=== PATIENT | female | born 1995 | race Asian ===

== ENCOUNTER 2024-11-27 08:33 | Outpatient (REF) | payer OTHER, SELFPAY ==
--- NOTE | ~2024-11-27 | XR_ITS ---
EXAMINATION: XR CHEST CLINICAL INFORMATION: R06.09 - Other forms of dyspnea COMPARISON: None available. TECHNIQUE: 2 views of the chest were obtained. FINDINGS: No consolidation, pleural effusion or pneumothorax. Cardiomediastinal silhouette size is normal. Osseous structures are intact. XR/XR chest 2V IMPRESSION: Normal exam. Electronically signed by: Isrrael Correia MD 11/27/2024 03:06 PM EDT
[2024-11-27 10:18] LABS: MANUAL DIFF FLAG NO
[2024-11-27 10:33] LABS: Appearance Urine Clear; Glucose Urine UA Negative (Negative); PH 6.0 (5.0-9.0); Specific Gravity - Urine 1.010 (1.005-1.025)
[2024-11-27 10:35] LABS: Hematocrit 44.8 % (37.0-47.0); Hemoglobin 14.5 g/dl (12.0-16.0); Imm Gran Abs Auto 0.02 X10*3/uL (0.00-0.03); Imm Gran Pct Auto 0.3 % (0.0-0.4); Lymphocytes Absolute Auto 2.7 X10*3/uL (1.2-4.9); Mean Corpuscular HGB Conc 32.4 g/dl (31.0-35.0); Mean Corpuscular Hemoglobin 26.2 pg (27.0-33.0); Mean Corpuscular Volume 81.0 fL (80.0-98.0); NRBC Abs Auto 0.000 X10*3/uL (0.0-0.012); NRBC Pct Auto 0.0 /100WBC (0.0-0.2); Platelet Count 244 X10*3/uL (160-400); Red Blood Count 5.53 X10*6/uL (4.20-5.50); White Blood Count 7.5 X10*3/uL (4.8-10.8)
[2024-11-27 11:00] LABS: B Type Natriuretic Peptide 51 pg/mL (<100)
[2024-11-27 11:06] LABS: Alanine Aminotransferase 19 U/L (0-31); Albumin Level 5.0 g/dL (3.5-5.0); Alkaline Phosphatase 52 U/L (39-117); Anion Gap 11 (12-20); Aspartate Amino Transferase 24 U/L (5-31); Blood Urea Nitrogen 7 mg/dL (9-16); Calcium 9.8 mg/dL (8.4-10.2); Carbon Dioxide 26 mmol/L (22-29); Chloride 107 mmol/L (96-108); Cholesterol 193 mg/dL (<200); Estimated Glomerular Filt Rate > 60; HDL Cholesterol 59 mg/dL (>40); Potassium 5.0 mmol/L (3.3-5.1); Sodium 139 mmol/L (135-145); Total Protein 8.0 g/dL (6.5-8.0); Triglycerides 61 mg/dL (<150)
[2024-11-27 11:14] LABS: HIV Num 1 0.05 S/CO (0.00-0.99)
[2024-11-28 19:03] LABS: Lyme Abs Screen <0.90 index
== END 2024-11-27 08:34 | disposition home or self-care (01) ==
LOC: HO.LAB 08:33
DX: Z76.89 Persons encountering health services in other specified circumstances (principal); I49.9 Cardiac arrhythmia, unspecified; R06.01 Orthopnea; R06.09 Other forms of dyspnea; N92.6 Irregular menstruation, unspecified; R59.9 Enlarged lymph nodes, unspecified; Z13.31 Encounter for screening for depression; Z13.39 Encounter for screening examination for other mental health and behavioral disorders
CPT/HCPCS: 36415; 71046; 80053; 80061; 81003; 82306; 83880; 84443; 84702; 85025; 85652; 86141; 86617; 86618; 87389; 96127; 99202

== ENCOUNTER 2024-11-27 08:33 | Outpatient (AMB) | payer OTHER, SELFPAY ==
[2024-11-27 08:35] VITALS: BP 110/62; PULSE 84; TEMP 36.2; O2SAT 99; BMI 19.3
--- NOTE | 2024-11-27 08:35 | A.OFFPC_ITS ---
Vital Signs 11/27/24 08:35 Height 5 ft 1 in Weight 102 lb 2 oz BMI 19.3 BP 110/62 Blood Pressure Location Lt brachial Position Sitting Pulse 84 Pulse Source Pulse Oximeter Temp 97.1 F Temp Source Temporal Artery Scan Pulse Oximetry (%) 99 Oxygen Delivery Method Room Air Intake Visit Reasons: establish care Plc Engineer Required: Yes Plc Engineer Language: Irish Plc Engineer Name: [id number] Accompanied by: Spouse Allergies No Known Allergies Allergy (Verified 11/27/24 08:45) Medication List - Last Reconciled 11/27/24 by PATEL Rodriguez No Known Home Meds Tobacco use date assessed: 11/27/24 Dental Screening Dental Screen Date: 11/27/24 Did you have a dental visit in the last 12 months?: No Did you have a dental problem in the last 6 months where you did not have access to dental care?: No Was dental information given to patient?: Patient declined HPI establish care HPI Details Patient is a 29-year-old Irish female presenting to [facility]. Accompanied by . Previous PCP:none in the [place] Last visit: n/a Last PE:about year ago Specialist: no OBGYN: will need a referral Past medical history: Cardiac arrhythmia Medications:no Family HX: none Problem: She reports shortness of breath when she lying down for too long, or with exertion. She also gets an headache when lying down at times. Denies shortness or breath with sitting up or standing. Denies heart palpitations. Denies chest pain or dizziness. Reports constipation closely menstruation. Abdomen cessation takes her 2-3 days before having a bowel movement Patient reports only having a period every 2 months. Reports that it usually last for 3 days lmp: October 20, 2024. Patient denies using controls before. 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 1. Little interest or pleasure in doing things: not at all 2. Feeling down, depressed, or hopeless: not at all 3. Trouble falling or staying asleep, or sleeping too much: not at all 4. Feeling tired or having little energy: not at all 5. Poor appetite or overeating: not at all 6. Feeling bad about yourself - or that you are a failure or have let yourself or your family down: not at all 7. Trouble concentrating on things, such as reading the newspaper or watching te levision: not at all 8. Moving or speaking so slowly that other people could have noticed. Or the opposite - being so fidgety or restless that you have been moving around a lot more than usual: not at all 9. Thoughts that you would be better off or of hurting yourself in some way: not at all Total score: 0 Depression Screening Interpretation: Negative Depression Screening Done: Yes 26673 - PHQ-9 Billing: Yes Source: Developed by Drs. Fernie Aldana, Anika Garland, Diego Benjamin and colleagues, with an educational geovanny from [employer] Thrive Questionnaire Date Thrive assessed: 11/27/24 I am a: Patient What is your living situation today?: I have a steady place to live Within the past 12 months, did the food you bought not last and you didn't have the money to get more?: Never true Within the past 12 months, did you worry whether your food would run out before you got money to buy more?: Never true Do you have trouble paying for medicines?: No Do you have trouble getting transportation to medical appointments?: No Do you have trouble paying your heating and electricity bill?: No Do you have trouble taking care of your child, family member or friend?: No Do you have trouble with day-to-day activities such as bathing, preparing meals, shopping, managing finances, etc.?: No Are you currently unemployed and looking for a job?: No Are you interested in more education?: No THRIVE Score: 0 AUDIT C Alcohol Use Questionnaire (AUDIT-C) 1. How often do you have a drink containing alcohol?: Never 3. How often do you have six or more drinks on one occasion?: Never Total Score: 0 MERNA-7 AMB Questionnaire MERNA-7 Date MERNA - 7 assessed: 11/27/24 Feeling nervous, anxious, or on edge: 0 = Not at all Not being able to stop or control worryin = Not at all Worrying too much about different things: 0 = Not at all Trouble relaxin = Not at all Being so restless that it is hard to sit still: 0 = Not at all Becoming easily annoyed or irritable: 0 = Not at all Feeling afraid as if something awful might happen: 0 = Not at all Total MERNA-7 score (0-4 normal; 5-9 mild; 10-14 moderate; 15-21 severe): 0 Source: Developed by Drs. Fernie Aldana, Anika Garland, Diego Benjamin and colleagues, with an educational geovanny from [employer] MERNA-7 Assessment Billing MERNA-7 Assessment Tool: MERNA-7 Assessment 63446 Review of Systems Const Reports headache(s) (Intermittent when lying down) Eyes Denies loss of vision ENT Denies vertigo, Denies dizziness, Reports headache(s) (Intermittent when lying down) and Denies sore throat Card Denies chest pain, Denies leg edema, Denies lightheadedness, Reports dyspnea on exertion and Reports orthopnea Resp Denies cough, Denies hemoptysis, Reports dyspnea on exertion and Denies wheezing GI Denies abdominal pain, Denies melena, Reports constipation (close to her periods), Denies diarrhea and Denies vomiting Denies dysuria, Denies urinary frequency and Denies urinary urgency Musc Denies arthralgias, Denies joint swelling, Denies numbness and Denies tingling Skin/Breast Reports other (Right posterior cervical lump) Neuro Denies Abnormal speech present, Denies behavioral changes, Denies vertigo, Denies dizziness, Reports headache(s) (Intermittent when lying down), Denies loss of vision, Denies memory loss, Denies numbness and Denies tingling Psych Denies anxiety, Denies behavioral changes, Denies depression, Denies memory loss and Denies panic attacks Todd/Lymph Denies easy bleeding and Denies easy bruising Aller/Immun Denies wheezing Physical exam (Primary Care) Vital Signs: Last Vital Signs Temp 97.1 F 11/27/24 08:35 Pulse 84 11/27/24 08:35 BP 110/62 11/27/24 08:35 Pulse Ox 99 11/27/24 08:35 Oxygen Delivery Method Room Air 11/27/24 08:35 BMI result Body Mass Index 19.3 Tobacco/Smoking Status: Tobacco use Status Patient Tobacco Use Status Never used Tobacco 11/27/24 08:41 Depression Screening Interpretation: Negative Const General: healthy appearing, no acute distress, alert and awake Nutritional Appearance: well nourished Orientation/consciousness: oriented to person, oriented to place and oriented to time HENMT Ears: TM's normal bilaterally General nose exam: Normal nasal mucous membranes and turbinates present Eyes Conjunctivae: conjunctivae normal Sclerae: sclerae normal Pupils: Equal, round and reactive pupils present Neck Neck: Yes lymphadenopathy (Right posterior as cervical lymph node) and Yes no JVD Thyroid: Thyroid normal Carotids: no bruits Resp Effort & Inspection: normal respiratory effort and not tachypneic Auscultation: no crackles, no rales, no rhonchi and no wheezes Cardio Rate: regular rate Rhythm: regular rhythm Heart sounds: no murmurs and normal S1 and S2 GI Palpation (GI): Soft to palpation, nontender, no hepatomegaly and no splenomegaly Auscultation: normal bowel sounds Skin General skin exam: dry skin Lesions: lesion noted (Right posterior cervical lymph node) Neuro General: oriented to person, oriented to place and oriented to time Cranial nerves: Yes Equal, round and reactive pupils present Speech: No Abnormal speech present Gait exam (Neuro): Normal gait present Motor exam (neuro): no tremor noted Extrem Right upper extremity: full ROM Left upper extremity: full ROM Right lower extremity: full ROM; no edema Left lower extremity: full ROM; no edema Psych Mental Status: mental status grossly normal Speech and movement: Normal speech and movement present Affect: normal affect Attitude: cooperative Thought process: Normal thought process present Coding Level of Care Code New Pt Level 4 (19237) Diagnoses Cardiac arrhythmia, unspecified cardiac arrhythmia type I49.9 Arrhythmia type: unspecified cardiac arrhythmia Orthopnea R06.01 Exertional dyspnea R06.09 Irregular periods N92.6 Lymph node enlargement R59.9 Additional Codes MERNA-7 Assessment Billing - MERNA-7 Assessment Tool: MERNA-7 Assessment 55054 ([id number]) PHQ-9 - 77140 - PHQ-9 Billing: Yes ([id number]) Time Spent (min) 45 Assessment & Plan Assessment & Plan (1) Cardiac arrhythmia: Code(s): I49.9 - Cardiac arrhythmia, unspecified Category: Medical Qualifiers: Arrhythmia type: unspecified cardiac arrhythmia Qualified Code(s): I49.9 - Cardiac arrhythmia, unspecified Plan: Patient reports that she was told that she had cardiac arrhythmia in [place]. Heart rhythm sinus with PVCs on 1 strip on the 2nd showed the patient has normal sinus with small Q-waves in leads V1 into and V2 nonspecific ST-T changes. Cardiology referral placed (2) Orthopnea: Code(s): R06.01 - Orthopnea Category: Medical Plan: Reports shortness of breath when lying down. Breath sounds clear, no swelling in her legs. BNP and echocardiogram ordered Ordered labs, we will advise (3) Exertional dyspnea: Code(s): R06.09 - Other forms of dyspnea Category: Medical Plan: Intermittent dyspnea with exertion. No edema or abnormal breath sounds. BNP and echo ordered. CXR was ordered as well. (4) Irregular periods: Code(s): N92.6 - Irregular menstruation, unspecified Category: Medical Plan: Patient is having periods every 2 months. HCG ordered with regular labs. We will refer to OBGYN (5) Lymph node enlargement: Code(s): R59.9 - Enlarged lymph nodes, unspecified Category: Medical Plan: Labs ordered, we will advise Orders: Orders Complete Blood Count Auto Diff Today N92.6 - Irregular menstruation, unspecified, R06.01 - Orthopnea, R06.09 - Other forms of dyspnea, R59.9 - Enlarged lymph nodes, unspecified, Z76.89 - Persons encountering health services in other specified circumstances TSH reflex Free T4 Today N92.6 - Irregular menstruation, unspecified, R06.01 - Orthopnea, R06.09 - Other forms of dyspnea, R59.9 - Enlarged lymph nodes, unspecified, Z76.89 - Persons encountering health services in other specified circumstances UA CC w/rflx Micro + Cult Today N92.6 - Irregular menstruation, unspecified, R06.01 - Orthopnea, R06.09 - Other forms of dyspnea, R59.9 - Enlarged lymph nodes, unspecified, Z76.89 - Persons encountering health services in other specified circumstances B Type Natriuretic Peptide Today N92.6 - Irregular menstruation, unspecified, R06.01 - Orthopnea, R06.09 - Other forms of dyspnea, R59.9 - Enlarged lymph nodes, unspecified, Z76.89 - Persons encountering health services in other specified circumstances Vitamin D 25-OH Total Today N92.6 - Irregular menstruation, unspecified, R06.01 - Orthopnea, R06.09 - Other forms of dyspnea, R59.9 - Enlarged lymph nodes, unspecified, Z76.89 - Persons encountering health services in other specified circumstances CRP High Sensitivity Today N92.6 - Irregular menstruation, unspecified, R06.01 - Orthopnea, R06.09 - Other forms of dyspnea, R59.9 - Enlarged lymph nodes, unspecified, Z76.89 - Persons encountering health services in other specified circumstances Erythrocyte Sedimentation Rate Today N92.6 - Irregular menstruation, unspecified, R06.01 - Orthopnea, R06.09 - Other forms of dyspnea, R59.9 - Enlarged lymph nodes, unspecified, Z76.89 - Persons encountering health services in other specified circumstances HIV Ab/Ag Today R59.9 - Enlarged lymph nodes, unspecified Lyme IgG/IgM w/reflex to WB Today R59.9 - Enlarged lymph nodes, unspecified CA echo transthoracic complete Today R06.01 - Orthopnea, R06.09 - Other forms of dyspnea Comprehensive Ideal. Panel Fast Today N92.6 - Irregular menstruation, unspecified, R06.01 - Orthopnea, R06.09 - Other forms of dyspnea, R59.9 - Enlarged lymph nodes, unspecified, Z76.89 - Persons encountering health services in other specified circumstances Lipid Panel Today N92.6 - Irregular menstruation, unspecified, R06.01 - Orthopnea, R06.09 - Other forms of dyspnea, R59.9 - Enlarged lymph nodes, unspecified, Z76.89 - Persons encountering health services in other specified circumstances XR chest 2V Today R06.01 - Orthopnea, R06.09 - Other forms of dyspnea HCG Quantitative Today N92.6 - Irregular menstruation, unspecified Referrals Cardiology Referral I49.9 - Cardiac arrhythmia, unspecified, R06.01 - Orthopnea, R06.09 - Other forms of dyspnea INCLUSION PARAEDUCATOR Referral N92.6 - Irregular menstruation, unspecified
== END 2024-11-27 09:36 | disposition home or self-care (01) ==
DX: I49.9 Cardiac arrhythmia, unspecified (principal); R06.01 Orthopnea; R06.09 Other forms of dyspnea; N92.6 Irregular menstruation, unspecified; R59.9 Enlarged lymph nodes, unspecified

== ENCOUNTER → 2024-11-27 10:20 | Outpatient (BNV) | payer OTHER, SELFPAY | PROVIDERS: Visit Provider Radiology Diagnostic Radiology | DX: R06.09 Other forms of dyspnea (principal) | CPT/HCPCS: 71046 ==

== ENCOUNTER → 2025-01-02 14:53 | Outpatient (REF) | payer OTHER, SELFPAY ==
--- NOTE | 2025-01-02 14:58 | CA_ITS ---
Transthoracic Echocardiogram Patient (Last, First, Middle): Courtney Arroyo, Gender: Female Date of : 1995 Age: 29 Procedure Date: 01/02/2025 Procedure Type: Transthoracic Echocardiogram Location: OP Height: 154.94 cm Weight: 46.27 kg BSA: 1.42 m2 Heart Rate: bpm BP: 110 / 62 mmHg Pin Puller: TO/DIYA Referring MD: Salty LORENZOP-C Symptoms: R06.01 - Orthopnea Study Quality: Adequate ECG Rhythm: Sinus Conclusions: - The left ventricular systolic function is normal. The calculated ejection fraction is 60% by biplane method. - No obvious valvular pathology seen on this study. Findings Left Ventricle Normal left ventricular cavity size. There is normal left ventricular wall thickness. The left ventricular systolic function is normal. The calculated ejection fraction is 60% by biplane method. There is no evidence of regional wall motion abnormalities. Diastolic function is normal for age. Right Ventricle Normal right ventricular cavity size and systolic function. Atria Both atria are normal in size. Aortic Valve There is a normal trileaflet aortic valve. There is no aortic valve stenosis. There is no aortic valve regurgitation. Mitral Valve The mitral valve appears normal. There is no mitral valve regurgitation. There is no mitral valve stenosis. Pulmonic Valve The pulmonic valve is likely normal. Tricuspid Valve There is mild tricuspid valve regurgitation. There is no evidence of pulmonary hypertension. Great Vessels The asc aorta is normal in size. Venous The inferior vena cava is normal in size and collapses greater than 50% with inspiration. Pericardium/Pleural There is no evidence of pericardial effusion. Prior Study Comparison No prior study available for comparison. Recommendations, Care & Conclusions No obvious valvular pathology seen on this study. Measurements 2D Linear Measurements IVSd: 0.57 0.6-0.9/0.6-1.0 cm LVIDd: 4.38 3.9-5.3/4.2-5.9 cm LVIDd Index: 3.08 2.4-3.2/2.2-3.1 cm/m2 LVIDs: 3.02 2.0-3.6 cm LVPWd: 0.56 0.7-1.1 cm LA Diam: 2.70 2.7-3.8/3.0-4.0 cm LAIDs Index: 1.90 1.5-2.3 cm/m2 LV Mass: 86.40 67-162/88-224 g LV Mass Index: 60.84 43-95/49-115 g/m2 LVOT Diam: 2.00 3.0+(-)1.3 cm 2D Systolic Function EF 4C: 55.60 >55% EF 2C: 63.50 >55% EF BiP: 59.90 >55% Mitral Valve MV Pk E: 0.95 MV PK A: 0.51 MV Decel Time: 207.00 E/A: 1.90 E'Lateral: 13.10 E'Medial: 11.70 E/E' Med: 8.10 E/E' Lat: 7.30 PHT: 61.00 MVA PHT: 3.61 Decel Sterling: 4.61 Aortic Valve AoV Pk Andrea: 1.26 AoV Mn Andrea: 0.91 AoV VTI: 0.30 AoV Pk Grad: 6.00 Aov Mn Grad: 4.00 SAMMY Cont.VTI: 2.39 LVOT LVOT Pk Andrea: 1.03 LVOT Mn Andrea: 0.69 LVOT VTI: 0.23 LVOT Pk Grad: 4.00 LVOT Mn Grad: 2.00 LVOT Diam: 2.00 LVOT Area: 3.14 Diastolic Function MV Pk E: 0.95 MV Pk A: 0.51 E/A: 1.90 E'Medial: 11.70 E/E' Med: 8.10 E' Laterial: 13.10 E/E' Lat: 7.30 Right Ventricle TAPSE (mm): 24.40 TVS' Andrea: 11.20 Tricuspid Valve TR Pk Andrea: 2.14 TR Pk Grad: 18.00 RA Press: 3.00 RVSP: 21.00 Great Vessels Aorta Sinus of Valsalva: 2.40 2.0-3.5 cm Ao Asc: 2.50 2.1-3.4 cm Pulmonary Valve PV Pk Andrea: 0.72 Peak PV Grad: 2.00 Updated in Other Vendor System with Status of Final Taqueria Burk MD electronically signed on 01/04/2025 9:38:04 AM with status of Final
== END ==
LOC: HO.CARD 14:53
DX: R06.01 Orthopnea (principal); R06.09 Other forms of dyspnea
CPT/HCPCS: 93306

== ENCOUNTER → 2025-01-02 14:58 | Outpatient (BNV) | payer OTHER, SELFPAY | PROVIDERS: Visit Provider Internal Medicine | DX: I36.1 Nonrheumatic tricuspid (valve) insufficiency (principal); R06.01 Orthopnea | CPT/HCPCS: 93306 ==

== ENCOUNTER 2025-01-15 08:36 | Outpatient (AMB) | payer OTHER, SELFPAY ==
--- NOTE | 2025-01-15 08:42 | MHC.PC.OV ---
Vital Signs 01/15/25 08:43 Height 5 ft 2 in Weight 102 lb 2 oz BMI 18.7 BP 116/70 Blood Pressure Location Lt brachial Position Sitting Pulse 88 Pulse Source Pulse Oximeter Pulse Oximetry (%) 98 Oxygen Delivery Method Room Air Intake Visit Reasons: 7 weeks Engine House Helper Required: Yes Engine House Helper Language: Laurel Engine House Helper Name: [id number]/Dina Accompanied by: Family/Other Allergies No Known Allergies Allergy (Verified 01/15/25 08:48) Medication List - Last Reconciled 01/15/25 by PATEL Rodriguez No Known Home Meds Tobacco use date assessed: 01/15/25 Dental Screening Dental Screen Date: 11/27/24 Did you have a dental visit in the last 12 months?: No Did you have a dental problem in the last 6 months where you did not have access to dental care?: No Was dental information given to patient?: No (pt is looking dentist ) HPI 7 weeks HPI Details Dentist:not up to date Eye: not up to date Snellen: Right: Left: Corrected vision: no STI screening: Colonoscopy: Pap Smer: She was referred to the [facility] but has not been contacted as yet OGYN: PHQ-9: Flu: up to date COVID: x2 Tdap: she is not sure when this was done, but it is within 10 years Diet:regular Exercise:Reports that she walks The patient is a 29-year-old female presenting with a physical examination and review of lab results. She reports experiencing shortness of breath primarily when lying down, particularly in the senior java web application developer hours. This symptom does not occur consistently and has not been associated with any specific triggers. The patient's cardiac evaluations, including heart tests and chest X-ray, have returned normal results, ruling out cardiac causes for her symptoms. There is a consideration for respiratory causes, and she plans to monitor her symptoms over the next week to determine frequency and potential triggers. The patient has been diagnosed with vitamin D deficiency, which is common in her geographical area due to limited sunlight exposure. She has been advised to take vitamin D supplements, which may be covered by insurance or purchased over the counter. Her cholesterol levels are slightly elevated, but given her young age, she is not considered at high risk. Dietary modifications have been suggested to manage cholesterol levels. Preventative care measures include a referral to an PROTECTIVE SIGNAL OPERATOR, which has not yet been scheduled. The patient has received two COVID-19 vaccinations and is uncertain about her tetanus vaccination status. 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 1. Little interest or pleasure in doing things: not at all 2. Feeling down, depressed, or hopeless: not at all 3. Trouble falling or staying asleep, or sleeping too much: not at all 4. Feeling tired or having little energy: not at all 5. Poor appetite or overeating: not at all 6. Feeling bad about yourself - or that you are a failure or have let yourself or your family down: not at all 7. Trouble concentrating on things, such as reading the newspaper or watching television: not at all 8. Moving or speaking so slowly that other people could have noticed. Or the opposite - being so fidgety or restless that you have been moving around a lot more than usual: not at all 9. Thoughts that you would be better off or of hurting yourself in some way: not at all Total score: 0 Depression Screening Interpretation: Negative Depression Screening Done: Yes Source: Developed by Drs. Fernie Aldana, Anika Garland, Diego Benjamin and colleagues, with an educational geovanny from [employer]. Thrive Questionnaire Date Thrive assessed: 01/15/25 I am a: Patient What is your living situation today?: I do not have a steady places to live I am temporarily staying with others Within the past 12 months, did the food you bought not last and you didn't have the money to get more?: Never true Within the past 12 months, did you worry whether your food would run out before you got money to buy more?: Never true Do you have trouble paying for medicines?: No Do you have trouble getting transportation to medical appointments?: No Do you have trouble paying your heating and electricity bill?: No Do you have trouble taking care of your child, family member or friend?: No Do you have trouble with day-to-day activities such as bathing, preparing meals, shopping, managing finances, etc.?: No Are you currently unemployed and looking for a job?: No Are you interested in more education?: No Please select the resources that you would like help with: None Currently or been in a relationship where the following occur: No concerns reported THRIVE Score: 1 AUDIT C Alcohol Use Questionnaire (AUDIT-C) 1. How often do you have a drink containing alcohol?: Never Total Score: 0 MERNA-7 AMB Questionnaire MERNA-7 Date MERNA - 7 assessed: 01/15/25 Feeling nervous, anxious, or on edge: 0 = Not at all Not being able to stop or control worryin = Not at all Worrying too much about different things: 0 = Not at all Trouble relaxin = Not at all Being so restless that it is hard to sit still: 0 = Not at all Becoming easily annoyed or irritable: 0 = Not at all Feeling afraid as if something awful might happen: 0 = Not at all Total MERNA-7 score (0-4 normal; 5-9 mild; 10-14 moderate; 15-21 severe): 0 Source: Developed by Drs. Fernie Aldana, Anika Garland, Diego Benjamin and colleagues, with an educational geovanny from [employer]. Review of Systems Const Denies headache(s) Eyes Denies loss of vision ENT Denies vertigo, Denies dizziness, Denies headache(s) and Denies sore throat Card Denies chest pain, Denies leg edema, Denies lightheadedness and Reports orthopnea Resp Denies cough, Denies hemoptysis and Denies wheezing GI Denies abdominal pain, Denies melena, Denies constipation, Denies diarrhea and Denies vomiting Denies urinary frequency, Denies dysuria and Denies urinary urgency Musc Denies arthralgias, Denies joint swelling, Denies numbness and Denies tingling Neuro Denies Abnormal speech present, Denies behavioral changes, Denies vertigo, Denies dizziness, Denies headache(s), Denies loss of vision, Denies memory loss, Denies numbness and Denies tingling Psych Denies anxiety, Denies behavioral changes, Denies depression, Denies memory loss and Denies panic attacks Todd/Lymph Denies easy bleeding and Denies easy bruising Aller/Immun Denies wheezing Physical exam (Primary Care) Vital Signs: Last Vital Signs Pulse 88 01/15/25 08:43 BP 116/70 01/15/25 08:43 Pulse Ox 98 01/15/25 08:43 Oxygen Delivery Method Room Air 01/15/25 08:43 BMI result Body Mass Index 18.7 Tobacco/Smoking Status: Tobacco use Status Tobacco use date assessed 01/15/25 01/15/25 08:47 Patient Tobacco Use Status Never used Tobacco 01/15/25 08:47 e-Cigarette/Vaping Use Never Used 01/15/25 08:47 PHQ-9: PHQ-9 Score PHQ-9: Total score 0 01/15/25 08:55 Depression Screening Interpretation: Negative Thrive Assessment: Date of Thrive Assessment Date Thrive assessed 01/15/25 01/15/25 08:47 Currently or been in a relationship where the following occur: No concerns reported Const General: healthy appearing, no acute distress, alert and awake Nutritional Appearance: well nourished Orientation/consciousness: oriented to person, oriented to place and oriented to time HENMT Ears: TM's normal bilaterally General nose exam: Normal nasal mucous membranes and turbinates present Eyes Conjunctivae: conjunctivae normal Sclerae: sclerae normal Pupils: Equal, round and reactive pupils present Neck Neck: Yes no lymphadenopathy and Yes no JVD Thyroid: Thyroid normal Carotids: no bruits Resp Effort & Inspection: normal respiratory effort and not tachypneic Auscultation: no crackles, no rales, no rhonchi and no wheezes Cardio Rate: regular rate Rhythm: regular rhythm Heart sounds: no murmurs and normal S1 and S2 GI Palpation (GI): Soft to palpation, nontender, no hepatomegaly and no splenomegaly Auscultation: normal bowel sounds Skin General skin exam: no rashes or lesions noted and dry skin Neuro General: oriented to person, oriented to place and oriented to time Cranial nerves: Yes Equal, round and reactive pupils present Speech: No Abnormal speech present Gait exam (Neuro): Normal gait present Motor exam (neuro): no tremor noted Deep tendon reflexes (DTR's): Right triceps reflex intensity grade: 2+, Left triceps reflex intensity grade: 2+, Rt Biceps (C5, C6): 2+, Left biceps reflex intensity grade: 2+, Right brachioradialis reflex intensity grade: 2+, Left brachioradialis reflex intensity grade: 2+, Right patellar reflex intensity grade: 2+ and Left patellar reflex intensity grade: 2+ Extrem Right upper extremity: full ROM Left upper extremity: full ROM Right lower extremity: full ROM; no edema Left lower extremity: full ROM; no edema Psych Mental Status: mental status grossly normal Speech and movement: Normal speech and movement present Affect: normal affect Attitude: cooperative Thought process: Normal thought process present Results Reviewed Results Reviewed: Laboratory Tests 11/27/24 11/27/24 10:15 10:16 WBC 7.5 RBC 5.53 H Hgb 14.5 Hct 44.8 MCV 81.0 MCH 26.2 L MCHC 32.4 RDW 12.9 Plt Count 244 MPV 10.5 Immature Gran % (Auto) 0.3 Sodium 139 Potassium 5.0 Chloride 107 Carbon Dioxide 26 Anion Gap 11 L BUN 7 L Creatinine 0.61 Estimated GFR > 60 Fasting Glucose 91 Calcium 9.8 Total Bilirubin 0.5 AST 24 ALT 19 Alkaline Phosphatase 52 C-React Prot High Sens 0.2 B-Natriuretic Peptide 51 Total Protein 8.0 Albumin 5.0 Triglycerides 61 Cholesterol 193 LDL Cholesterol, Calc 122 H HDL Cholesterol 59 25-OH Vitamin D Total 18.5 L TSH 0.98 Beta HCG, Quant < 2 Urine Color Yellow Urine Appearance Clear Urine pH 6.0 Ur Specific [place] 1.010 Urine Protein Negative Urine Glucose (UA) Negative Urine Ketones Negative Urine Blood Negative Urine Nitrite Negative Ur Leukocyte Esterase Negative Coding Level of Care Code Est Pt Prev Care 18-39y([id number]) Diagnoses Annual physical exam Z00.00 Orthopnea R06.01 Cardiac arrhythmia, unspecified cardiac arrhythmia type I49.9 Arrhythmia type: unspecified cardiac arrhythmia Pure hypercholesterolemia E78.00 Hyperlipidemia type: pure hypercholesterolemia Vitamin D deficiency E55.9 Irregular periods N92.6 Elevated LDL cholesterol level E78.00 Time Spent (min) 37 Assessment & Plan Assessment & Plan (1) Annual physical exam: Code(s): Z00.00 - Encounter for general adult medical examination without abnormal findings Category: Medical (2) Orthopnea: Code(s): R06.01 - Orthopnea Category: Medical (3) Cardiac arrhythmia: Code(s): I49.9 - Cardiac arrhythmia, unspecified Category: Medical Qualifiers: Arrhythmia type: unspecified cardiac arrhythmia Qualified Code(s): I49.9 - Cardiac arrhythmia, unspecified (4) HLD (hyperlipidemia): Code(s): E78.5 - Hyperlipidemia, unspecified Category: Medical Qualifiers: Hyperlipidemia type: pure hypercholesterolemia Qualified Code(s): E78.00 - Pure hypercholesterolemia, unspecified (5) Vitamin D deficiency: Code(s): E55.9 - Vitamin D deficiency, unspecified Category: Medical (6) Irregular periods: Code(s): N92.6 - Irregular menstruation, unspecified Category: Medical (7) Elevated LDL cholesterol level: Code(s): E78.00 - Pure hypercholesterolemia, unspecified Category: Medical Plan The patient will monitor her symptoms of shortness of breath over the next week to assess frequency and potential triggers. A pulmonary function test will be ordered to evaluate respiratory function further. For vitamin D deficiency, the patient is advised to take supplements, which may be covered by insurance or purchased over the counter. Dietary modifications are recommended to manage slightly elevated cholesterol levels. A referral to an PROTECTIVE SIGNAL OPERATOR has been made, and follow-up will be conducted to ensure the appointment is scheduled. The patient has completed COVID-19 vaccinations and will be advised on the necessity of a tetanus booster if needed. Patient was informed and verbally consented to the use of an ambient scribe for clinic note documentation during this visit. Orders: Orders Complete Blood Count Auto Diff 3 Months E55.9 - Vitamin D deficiency, unspecified, E78.5 - Hyperlipidemia, unspecified, I49.9 - Cardiac arrhythmia, unspecified IRON PROFILE 3 Months E55.9 - Vitamin D deficiency, unspecified, E78.5 - Hyperlipidemia, unspecified, I49.9 - Cardiac arrhythmia, unspecified Vitamin D 25-OH Total 3 Months E55.9 - Vitamin D deficiency, unspecified, E78.5 - Hyperlipidemia, unspecified, I49.9 - Cardiac arrhythmia, unspecified PFT pulmonary function test Today R06.01 - Orthopnea
[2025-01-15 08:43] VITALS: BP 116/70; PULSE 88; O2SAT 98; BMI 18.7
== END 2025-01-15 09:24 | disposition home or self-care (01) ==
LOC: HO.HMCH 08:37
DX: Z00.00 Encounter for general adult medical examination without abnormal findings (principal); R06.01 Orthopnea; I49.9 Cardiac arrhythmia, unspecified; E78.00 Pure hypercholesterolemia, unspecified; E55.9 Vitamin D deficiency, unspecified; N92.6 Irregular menstruation, unspecified

== ENCOUNTER → 2025-01-15 08:36 | Outpatient (BNVA) | payer OTHER, SELFPAY | DX: Z00.00 Encounter for general adult medical examination without abnormal findings (principal); E55.9 Vitamin D deficiency, unspecified; R06.01 Orthopnea; I49.9 Cardiac arrhythmia, unspecified; E78.00 Pure hypercholesterolemia, unspecified; N92.6 Irregular menstruation, unspecified | CPT/HCPCS: 99395 ==

== ENCOUNTER 2025-04-08 13:05 | Outpatient (AMB) | payer OTHER, SELFPAY ==
[2025-04-08 13:07] VITALS: BP 120/76; PULSE 68; BMI 19.4
--- NOTE | 2025-04-08 13:07 | MHC.OFFVIS ---
Vital Signs 04/08/25 13:07 Height 5 ft 2 in Weight 105 lb 13.15 oz BMI 19.4 BP 120/76 Blood Pressure Location Lt brachial Position Sitting Pulse 68 Intake Visit Reasons: [facility]/Reyes/Cardiac Arrhythmia Intake Note: New patient dx cardiac arrhythmia c/o palpitations mostly in morning Refrigeration Service Inspector Required: Yes Refrigeration Service Inspector Services: Refrigeration Service Inspector Present Refrigeration Service Inspector Name: scottie Crochet Machine Operator: Crochet Machine Operator Present Accompanied by: Spouse Allergies No Known Allergies Allergy (Verified 01/15/25 08:48) Medication List - Last Reconciled 04/08/25 by Lino Steele MD multivitamin 1 tab PO DAILY HPI Comments Details: Thi was referred here for symptoms of palpitations and shortness of breath. She presents here with her and her daughter and history was obtained with help of resp ther over the telephone as she speaks mostly Lao. Patient says that for year or so prior to her current symptoms she was having symptoms of palpitation associated with shortness of breath. At that time she had been seen by you. However since she was examined by you she has not had any recurrent symptoms of palpitation or shortness of breath. She had an echocardiogram done in December which showed normal structure of the heart. She otherwise is generally active. She denies any significant caffeine use or alcohol use. No exertional chest pain or shortness of breath. No orthopnea, PND. 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 Cognitive needs: No Hearing needs: No Vision needs: No Review of Systems Const Denies chills, Denies daytime sleepiness, Denies fatigue, Denies fever(s), Denies frequent falls, Denies poor appetite, Denies snoring, Denies stops breathing during sleep, Denies weakness, Denies weight gain and Denies weight loss Eyes Denies loss of vision ENT Denies dizziness and Denies hearing loss Card Denies chest pain, Denies claudication, Denies leg edema, Denies lightheadedness, Reports palpitations, Denies dyspnea, Denies dyspnea on exertion and Denies orthopnea Resp Denies cough, Denies excessive phlegm production, Denies dyspnea, Denies dyspnea on exertion, Denies snoring and Denies wheezing GI Denies abdominal pain, Denies hematochezia, Denies change in bowel habits, Denies nausea and Denies vomiting Denies urinary frequency and Denies dysuria Musc Denies arthralgias, Denies muscle weakness and Denies numbness Skin/Breast Denies nail changes and Denies rash Neuro Denies Abnormal speech present, Denies dizziness, Denies frequent falls, Denies loss of vision, Denies memory loss, Denies numbness and Denies weakness Psych Denies depression and Denies memory loss Endo Denies fatigue and Reports palpitations Todd/Lymph Reports easy bruising and Reports other (anemia) Aller/Immun Denies wheezing Physical Exam Vital Signs: Last Vital Signs Pulse 68 04/08/25 13:07 BP 120/76 04/08/25 13:07 BMI result Body Mass Index 19.4 Const General: cooperative, comfortable, no acute distress, alert, awake and Physically active Nutritional Appearance: thin Orientation/consciousness: patient oriented x3 Limitations: no limitations HEENT Head: Yes normocephalic and Yes atraumatic Neck Neck: Yes trachea midline, Yes supple and Yes no JVD Resp Effort & Inspection: normal respiratory effort Auscultation: clear to auscultation bilaterally Cardio Jugular venous distension: no JVD Rate: regular rate Rhythm: regular rhythm Heart sounds: S1 normal heart sound present, S2 normal heart sound present, no click, no gallops, no murmurs and no rubs GI Auscultation: normal bowel sounds Skin General skin exam: no rashes or lesions noted Neuro General: patient oriented x3 and no focal motor deficits Speech: No Abnormal speech present Extrem General: Yes no clubbing, cyanosis or edema Office Procedures EKG Details: EKG shows normal sinus rhythm normal EKGs with no pre-excitation with normal intervals [id number], Complete Assessment & Plan Assessment & Plan (1) Palpitations: Code(s): R00.2 - Palpitations Plan: Patient with prior history of palpitation with no recurrence for last many months with normal structure of the heart and echocardiogram and normal EKGs. She could have several possibilities including possible anxiety possible extra systoles. However given lack of symptoms and overall normal findings on exam as well as echocardiogram no further workup is indicated. Discussed with patient and patient's with the help of resp ther that if she has recurrent symptoms to reach out to us for further workup. Avoidance of stimulants was discussed. Stress mitigation strategies were discussed. Will follow up in the clinic if need be. Thank you for allowing me to partake in her care Coding Level of Care Code New Pt Level 3 ([id number]) Complex EM visit Add On G2211 Diagnoses Palpitations R00.2 CPT Codes EKG - CPT: 72195-[id number], Complete ([id number])
== END 2025-04-08 13:33 | disposition home or self-care (01) ==
LOC: HO.HCS 13:06
PROVIDERS: Visit Provider Internal Medicine Cardiovascular Disease
DX: R00.2 Palpitations (principal)
CPT/HCPCS: 93010; 99203

== ENCOUNTER → 2025-04-08 13:05 | Outpatient (BNVA) | payer OTHER, SELFPAY | PROVIDERS: Visit Provider Internal Medicine Cardiovascular Disease | DX: R00.2 Palpitations (principal) | CPT/HCPCS: 93005; 99202 ==